=== PATIENT | female | born 1995 | race Native Hawaiian/Other Pacific Islander ===

== ENCOUNTER 2018-09-15 17:05 | Emergency (ER) | payer OTHER ==
--- NOTE | 2018-09-15 17:57 | ED PDOC ---
Arrival/HPI - General Time Seen by Provider: 09/15/18 17:08 Historian: Patient - History of Present Illness Narrative History of Present Illness (Text): 09/15/18 17:08 Irais العلي is a 23 year old female, with no significant past medical history, bib EMS for abnormal behavior prior to arrival. Patient was found wandering around a bank asking questions to staff; pt informs of multiple previous instances of similar wandering behavior. Pt denies suicidal / homicidal ideation. Patient denies any somatic complaints; denies fevers, chills, chest pain, shortness of breath, cough, abdominal pain, nausea, vomiting, diarrhea, dysuria, hematuria, back pain, neck pain. Time/Duration: Prior to Arrival Symptom Course: Resolved Activities at Onset: Light Context: Other (Bank) Past Medical History - Provider Review Nursing Documentation Reviewed: Yes Family/Social History - Physician Review Nursing Documentation Reviewed: Yes Family/Social History: Unknown Family HX Allergies/Home Meds Allergies/Adverse Reactions: Allergies No Known Allergies Allergy (Verified 09/15/18 18:01) Home Medications: Home Meds Medication Instructions Recorded Confirmed Amphetamine Salt Combination 0 mg 09/15/18 [Adderall] Review of Systems - Physician Review All systems were reviewed & negative as marked: Yes - Review of Systems Constitutional: absent: Fevers, Other (chills) Respiratory: absent: SOB, Cough Cardiovascular: absent: Chest Pain Gastrointestinal: absent: Abdominal Pain, Diarrhea, Nausea, Vomiting Genitourinary Female: absent: Dysuria, Hematuria Musculoskeletal: absent: Back Pain, Neck Pain Psychiatric: Other (abnormal behavior, wandering). absent: Suicidal Ideation (no homicidal ideation) Physical Exam - Systems Exam Head: Present: Atraumatic, Normocephalic Pupils: Present: PERRL Extroacular Muscles: Present: EOMI Conjunctiva: Present: Normal Mouth: Present: Moist Mucous Membranes Neck: Present: Normal Range of Motion Respiratory/Chest: Present: Clear to Auscultation, Good Air Exchange. No: Respiratory Distress, Accessory Muscle Use, Wheezes, Rales, Rhonchi Cardiovascular: Present: Regular Rate and Rhythm, Normal S1, S2. No: Murmurs, Rub, Gallop Abdomen: Present: Normal Bowel Sounds. No: Tenderness, Distention, Peritoneal Signs, Rebound, Guarding Back: Present: Normal Inspection Upper Extremity: Present: Normal Inspection. No: Cyanosis, Edema Lower Extremity: Present: Normal Inspection. No: Edema Neurological: Present: GCS=15, CN II-XII Intact, Speech Normal Skin: Present: Warm, Dry, Normal Color. No: Rashes Psychiatric: Present: Alert, Oriented x 3, Normal Insight, Normal Concentration Medical Decision Making ED Course and Treatment: 09/15/18 17:08 Impression: 23 year old female with no significant past medical history, bib EMS to the [facility] for abnormal behavior. Plan: --Labs --PES evaluation -- Reassess and disposition Progress Notes: 09/15/18 19:05 Patient is medically cleared and will be evaluated by PES. 09/15/18 19:[address] Ceballos who will resume the patient's care. - Lab Interpretations Lab Results: 09/15/18 18:42 09/15/18 18:42 Lab Results 09/15/18 18:42: Sodium 144, Potassium 3.8, Chloride 105, Carbon Dioxide 23, Anion Gap 20, BUN 12, Creatinine 0.6 L, Est GFR ( Amer) > 60, Est GFR (Non-Af Amer) > 60, Random Glucose 121 H, Calcium 9.8, Total Bilirubin 0.6, AST 21, ALT 8, Alkaline Phosphatase 51, Total Protein 8.7 H, Albumin 5.3 H, Globulin 3.4, Albumin/Globulin Ratio 1.5 09/15/18 18:42: Salicylates < 1 L, Acetaminophen < 10.0 L 09/15/18 18:42: WBC 10.9, RBC 4.69, Hgb 13.4, Hct 41.0, MCV 87.4, MCH 28.6, MCHC 32.7, RDW 13.1, Plt Count 282, MPV 9.5, Neut % (Auto) 87.3 H, Lymph % (Auto) 9.5 L, [place] % (Auto) 2.8, Eos % (Auto) 0.1 L, Baso % (Auto) 0.3, Lymph # (Auto) 1.0 L, [place] # (Auto) 0.3, Eos # (Auto) 0.0, Baso # (Auto) 0.03, Absolute Neuts (auto) 9.52 H I have reviewed the lab results: Yes - EKG Interpretation EKG Interpretation (Text): 09/15/18 18:41 Reviewed EKG, shows: NSR at 97 BPM. Right sided axis. Slight QT Prolongation. No ST abnormalities Interpreted by ED Physician: Yes Type: 12 lead EKG - Scribe Statement The provider has reviewed the documentation as recorded by the Scribe Armond Quick All medical record entries made by the Scribe were at my direction and personally dictated by me. I have reviewed the chart and agree that the record accurately reflects my personal performance of the history, physical exam, m edical decision making, and the department course for this patient. I have also personally directed, reviewed, and agree with the discharge instructions and disposition. Disposition/Present on Arrival - Disposition Forms: [employer] ([place])
[2018-09-15 18:01] VITALS: BMI 21.0
[2018-09-15 18:30] VITALS: TEMP 98
[2018-09-15 18:53] LABS: BASO # 0.03 K/mm3 (0.0-2.0); BASO % 0.3 % (0.0-3.0); EOS % 0.1 % (1.5-5.0); HEMOGLOBIN 13.4 g/dL (12.0-16.0); LYMPH % 9.5 % (22.0-35.0); MEAN CELL VOLUME 87.4 fl (80.0-105.0); MEAN CORPUSCULAR HEMOGLOBIN 28.6 pg (25.0-35.0); MEAN CORPUSCULAR HGB CONC 32.7 g/dl (31.0-37.0); MEAN PLATELET VOLUME 9.5 fl (7.0-11.0); MONO # 0.3 (0.1-0.6); MONO % 2.8 % (1.0-6.0); RBC 4.69 10^6/uL (3.5-6.1); RED CELL DISTRIBUTION WIDTH 13.1 % (11.5-14.5); WHITE BLOOD COUNT 10.9 10^3/uL (4.5-11.0)
[2018-09-15 19:03] LABS: ACETAMINOPHEN < 10.0 ug/ml (10.0-20.0); SALICYLATE < 1 mg/dL (2.0-20.0)
[2018-09-15 19:04] LABS: ALB/GLOB RATIO 1.5 (1.1-1.8); ALBUMIN 5.3 g/dL (3.0-4.8); ALT/SGPT 8 U/L (7-56); AST/SGOT 21 U/L (14-36); BLOOD UREA NITROGEN 12 mg/dL (7-21); CALCIUM 9.8 mg/dL (8.4-10.5); GFR NON-AFRICAN AMERICAN > 60
--- NOTE | 2018-09-15 20:01 | ED PDOC ---
Physical Exam Vital Signs Reviewed: Yes Vital Signs Temp Pulse Resp BP Pulse Ox 09/15/18 18:29 98.0 F 98 H 18 88/58 L 98 09/15/18 17:45 97.8 F 106 H 18 112/76 99 Temperature: Afebrile Blood Pressure: Normal Pulse: Tachycardic Respiratory Rate: Normal Appearance: Positive for: Well-Appearing, Non-Toxic, Comfortable Pain Distress: None Mental Status: Positive for: Alert and Oriented X 3 Medical Decision Making ED Course and Treatment: 09/15/18 19:59 Patient was endorsed to me by Dr Swift pending PES evaluation. Patient presented initially for bizarre behavior. Patient has been medically cleared and is awaiting PES worker for evaluation. 09/15/18 21:38 Patient was seen by PES worker here, patient is to be screened by [facility], final disposition pending. 09/16/18 04:11 Patient was seen and evaluated by [facility] screener.Accepted for admission/transfer to [facility]/Awaiting bed availability. 09/16/18 07:00 Case endorsed to /patient awaiting transfer to [facility] pending bed availability - Lab Interpretations Lab Results: Total Bilirubin 0.6 mg/dL (0.2-1.3) 09/15/18 18:42 AST 21 U/L (14-36) 09/15/18 18:42 ALT 8 U/L (7-56) 09/15/18 18:42 Alkaline Phosphatase 51 U/L (38-126) 09/15/18 18:42 Total Protein 8.7 g/dL (5.8-8.3) H 09/15/18 18:42 Albumin 5.3 g/dL (3.0-4.8) H 09/15/18 18:42 Globulin 3.4 gm/dL 09/15/18 18:42 Albumin/Globulin Ratio 1.5 (1.1-1.8) 09/15/18 18:42 - RAD Interpretation Narrative RAD Interpretations (Text): 09/16/18 00:41 CXR- No acute process Radiology Orders: 09/15/18 18:13 CHEST PORTABLE [RAD] Stat Home Health Attendant: ED Physician - Scribe Statement The provider has reviewed the documentation as recorded by the Wilbert Galan Provider Scribe Attestation: All medical record entries made by the Scribe were at my direction and personally dictated by me. I have reviewed the chart and agree that the record accurately reflects my personal performance of the history, physical exam, medical decision making, and the department course for this patient. I have also personally directed, reviewed, and agree with the discharge instructions and disposition. Disposition/Present on Arrival - Present on Arrival Any Indicators Present on Arrival: No History of DVT/PE: No History of Uncontrolled Diabetes: No Urinary Catheter: No History of Decub. Ulcer: No History Surgical Site Infection Following: None - Disposition Have Diagnosis and Disposition been Completed?: No Diagnosis: Psychosis Disposition Time: 07:00 Patient Problems: Current Active Problems Problem Status Onset Psychosis Acute Condition: STABLE Forms: xiao qu wu you (Niuean)
[2018-09-15 22:09] LABS: URINE BILIRUBIN NEGATIVE (NEGATIVE); URINE BLOOD LARGE (NEGATIVE); URINE GLUCOSE (UA) NEGATIVE (NEGATIVE); URINE LEUKOCYTE ESTERASE TRACE Leu/uL (NEGATIVE); URINE PROTEIN 100 mg/dL (<30 mg/dL); URINE UROBILINOGEN 0.2 E.U./dL (<1 E.U./dL)
[2018-09-15 22:18] LABS: URINE APPEARANCE SL CLOUDY (CLEAR); URINE COLOR YELLOW (YELLOW)
[2018-09-15 22:22] LABS: URINE BACTERIA FEW /hpf; URINE EPITHELIAL CELLS 0 - 2 /hpf (0-5); URINE RBC 15 - 20 /hpf (0-2); URINE WBC 0 - 2 /hpf (0-6)
[2018-09-15 22:29] LABS: BARBITURATES, UR NEGATIVE (NEGATIVE); BENZODIAZEPINES, UR NEGATIVE (NEGATIVE); OPIATES, UR NEGATIVE (NEGATIVE); PHENCYCLIDINE, UR NEGATIVE (NEGATIVE)
--- NOTE | 2018-09-16 08:02 | RAD ---
Date of service: 09/15/2018 HISTORY: psych clearance COMPARISON: No prior. TECHNIQUE: 1 view obtained. FINDINGS: LUNGS: No active pulmonary disease. PLEURA: No significant pleural effusion identified, no pneumothorax apparent. CARDIOVASCULAR: No aortic atherosclerotic calcification present. Normal cardiac size. No pulmonary vascular congestion. OSSEOUS STRUCTURES: No significant abnormalities. VISUALIZED UPPER ABDOMEN: Normal. OTHER FINDINGS: None. IMPRESSION: No active disease.
--- NOTE | 2018-09-16 08:51 | ED PDOC ---
Physical Exam Vital Signs Temp Pulse Resp BP Pulse Ox 09/16/18 07:02 60 18 95/57 L 96 09/16/18 03:14 63 18 105/58 L 99 09/15/18 18:29 98.0 F 98 H 18 88/58 L 98 09/15/18 17:45 97.8 F 106 H 18 112/76 99 Medical Decision Making ED Course and Treatment: 09/16/18 07:00 Case endorsed to me by Dr. Alcantara pending bed availability and transfer to [facility] - Lab Interpretations Lab Results: Total Bilirubin 0.6 mg/dL (0.2-1.3) 09/15/18 18:42 AST 21 U/L (14-36) 09/15/18 18:42 ALT 8 U/L (7-56) 09/15/18 18:42 Alkaline Phosphatase 51 U/L (38-126) 09/15/18 18:42 Total Protein 8.7 g/dL (5.8-8.3) H 09/15/18 18:42 Albumin 5.3 g/dL (3.0-4.8) H 09/15/18 18:42 Globulin 3.4 gm/dL 09/15/18 18:42 Albumin/Globulin Ratio 1.5 (1.1-1.8) 09/15/18 18:42 Urine Color Yellow (YELLOW) 09/15/18 22:03 Urine Appearance Sl cloudy (CLEAR) 09/15/18 22:03 Urine pH 7.0 (4.7-8.0) 09/15/18 22:03 Ur Specific [place] 1.020 (1.005-1.035) 09/15/18 22:03 Urine Protein 100 mg/dL (<30 mg/dL) H 09/15/18 22:03 Urine Glucose (UA) Negative mg/dL (NEGATIVE) 09/15/18 22:03 Urine Ketones Trace mg/dL (NEGATIVE) H 09/15/18 22:03 Urine Blood Large (NEGATIVE) H 09/15/18 22:03 Urine Nitrate Negative (NEGATIVE) 09/15/18 22:03 Urine Bilirubin Negative (NEGATIVE) 09/15/18 22:03 Urine Urobilinogen 0.2 E.U./dL (<1 E.U./dL) 09/15/18 22:03 Ur Leukocyte Esterase Trace Mushtaq/uL (NEGATIVE) H 09/15/18 22:03 Urine RBC 15 - 20 /hpf (0-2) H 09/15/18 22:03 Urine WBC 0 - 2 /hpf (0-6) 09/15/18 22:03 Ur Epithelial Cells 0 - 2 /hpf (0-5) 09/15/18 22:03 Urine Bacteria Few /hpf (NONE) 09/15/18 22:03 - RAD Interpretation Radiology Orders: 09/15/18 18:13 CHEST PORTABLE [RAD] Stat - Scribe Statement The provider has reviewed the documentation as recorded by the Scribe Srinivas Campuzano Provider Scribe Attestation: All medical record entries made by the Scribe were at my direction and personally dictated by me. I have reviewed the chart and agree that the record accurately reflects my personal performance of the history, physical exam, medical decision making, and the department course for this patient. I have also personally directed, reviewed, and agree with the discharge instructions and disposition. Disposition/Present on Arrival - Present on Arrival Any Indicators Present on Arrival: No History of DVT/PE: No History of Uncontrolled Diabetes: No Urinary Catheter: No History of Decub. Ulcer: No History Surgical Site Infection Following: None - Disposition Have Diagnosis and Disposition been Completed?: Yes Diagnosis: Psychosis Disposition: HOSPITALIZED Disposition Time: 14:20 Condition: STABLE Forms: [employer] (Swedish)
--- NOTE | 2018-09-16 11:40 | CARD ---
APPROVED REPORT Date of service: 09/15/2018 EKG Measurement Heart [id number] <Conclusion> Normal sinus rhythm Rightward axis Pulmonary disease pattern Abnormal ECG
[2018-09-16 14:49] VITALS: BP 100/57; PULSE 70
[2018-09-16 16:05] VITALS: RESP 19; O2SAT 99
== END 2018-09-16 15:40 | disposition short-term general hospital (02) ==
LOC: EDBD → ED 17:05
DX: F29 Unspecified psychosis not due to a substance or known physiological condition (principal)